=== PATIENT | female | born 1985 | race Hispanic/Latino ===

== ENCOUNTER 2018-05-25 18:47 | Emergency (ER) | payer SELFPAY ==
[2018-05-25 19:55] LABS: Urine Blood TRACE (NEG); Urine Glucose NEGATIVE (NEG); Urine Protein 1+ (NEG); Urine Specific Gravity 1.025 (1.005-1.030); Urine pH 8.5 (5.0-7.0)
--- NOTE | 2018-05-25 20:04 | RAD REPORT ---
EXAM DESCRIPTION: Josefina Narvaez (2 Views)05/25/2018 7:42 pm CLINICAL HISTORY: Chest pain COMPARISON: None FINDINGS: The lungs appear clear of acute infiltrate. The heart is normal size IMPRESSION: No acute abnormalities displayed
[2018-05-25 21:24] LABS: Absolute Lymphocytes (CBC) 3.1 K/uL (0.7-4.9); Absolute Monocytes 0.8 K/uL (0.1-1.3); Absolute Neutrophil 5.6 K/uL (1.8-8.0); Basophils % 0.7 % (0-1.3); Eosinophils % 2.3 % (0-4.4); Hematocrit 44.2 % (36.0-45.0); Lymphocytes % 31.9 % (15.3-44.8); MCH 30.4 pg (27.0-35.0); MCV 90.9 fL (80-100); MPV 9.4 fL (7.6-11.3); Monocytes % 8.3 % (3.3-12.3); RBC Red Blood Cell Count 4.86 M/uL (3.86-4.86)
--- NOTE | 2018-05-25 21:38 | EDPHYS ---
Physician Documentation [facility] Name: Maria Del Carmen Nolan Age: 33 yrs Sex: Female : 1985 Arrival Date: 05/25/2018 Time: 18:49 Bed 13 Private MD: None, None ED Physician John Ontiveros HPI: 05/25 21:35 This 33 yrs old Female presents to ER via Ambulatory with complaints of nh Breathing Difficulty. 21:35 The patient has shortness of breath at rest. Onset: The symptoms/episode began/occurred nh just prior to arrival. Duration: The symptoms are intermittent. The patient's shortness of breath has no apparent modifying factors. Associated signs and symptoms: Pertinent positives: chest pain. Severity of symptoms: At their worst the symptoms were moderate just prior to arrival, in the emergency department the symptoms are unchanged. The patient has not experienced similar symptoms in the past. The patient has not recently seen a physician. Historical: - Allergies: 18:52 No Known Allergies; sv - Home Meds: 18:52 None [Active]; sv - PMHx: 18:52 None; sv - PSHx: 18:52 None; sv - Immunization history:: Flu vaccine is not up to date. - Social history:: Smoking status: Patient/guardian denies using tobacco. - Ebola Screening: : No symptoms or risks identified at this time. ROS: 21:35 Constitutional: Negative for fever, chills, and weight loss, Eyes: Negative for injury, nh pain, redness, and discharge, ENT: Negative for injury, pain, and discharge, Neck: Negative for injury, pain, and swelling, Abdomen/GI: Negative for abdominal pain, nausea, vomiting, diarrhea, and constipation, Back: Negative for injury and pain, : Negative for injury, bleeding, discharge, and swelling, MS/Extremity: Negative for injury and deformity, Skin: Negative for injury, rash, and discoloration, Neuro: Negative for headache, weakness, numbness, tingling, and seizure, Psych: Negative for depression, anxiety, suicide ideation, homicidal ideation, and hallucinations, Allergy/Immunology: Negative for hives, rash, and allergies, Endocrine: Negative for neck swelling, polydipsia, polyuria, polyphagia, and marked weight changes, Hematologic/Lymphatic: Negative for swollen nodes, abnormal bleeding, and unusual bruising. 21:35 Cardiovascular: Positive for chest pain. 21:35 Respiratory: Positive for shortness of breath. Exam: 21:35 Constitutional: This is a well developed, well nourished patient who is awake, alert, nh and in no acute distress. Head/Face: Normocephalic, atraumatic. Eyes: Pupils equal round and reactive to light, extra-ocular motions intact. Lids and lashes normal. Conjunctiva and sclera are non-icteric and not injected. Cornea within normal limits. Periorbital areas with no swelling, redness, or edema. ENT: Nares patent. No nasal discharge, no septal abnormalities noted. Tympanic membranes are normal and external auditory canals are clear. Oropharynx with no redness, swelling, or masses, exudates, or evidence of obstruction, uvula midline. Mucous membranes moist. Neck: Trachea midline, no thyromegaly or masses palpated, and no cervical lymphadenopathy. Supple, full range of motion without nuchal rigidity, or vertebral point tenderness. No Meningismus. Chest/axilla: Normal chest wall appearance and motion. Nontender with no deformity. No lesions are appreciated. Cardiovascular: Regular rate and rhythm with a normal S1 and S2. No gallops, murmurs, or rubs. Normal PMI, no JVD. No pulse deficits. Respiratory: Lungs have equal breath sounds bilaterally, clear to auscultation and percussion. No rales, rhonchi or wheezes noted. No increased work of breathing, no retractions or nasal flaring. Abdomen/GI: Soft, non-tender, with normal bowel sounds. No distension or tympany. No guarding or rebound. No evidence of tenderness throughout. Back: No spinal tenderness. No costovertebral tenderness. Full range of motion. Skin: Warm, dry with normal turgor. Normal color with no rashes, no lesions, and no evidence of cellulitis. MS/ Extremity: Pulses equal, no cyanosis. Neurovascular intact. Full, normal range of motion. Neuro: Awake and alert, GCS 15, oriented to person, place, time, and situation. Cranial nerves II-XII grossly intact. Motor strength 5/5 in all extremities. Sensory grossly intact. Cerebellar exam normal. Normal gait. Psych: Awake, alert, with orientation to person, place and time. Behavior, mood, and affect are within normal limits. Vital Signs: 18:51 Temp 97.8; sv 18:52 BP 171 / 92; Pulse 117; Resp 22; Pulse Ox 97% ; Weight 127.01 kg; Height 5 ft. 2 in. sv (157.48 cm); Pain 7/10; 19:27 BP 125 / 86; Pulse 98; Resp 19 S; Pulse Ox 97% on R/A; cc3 20:33 BP 110 / 92; Pulse 81; Resp 19 S; Pulse Ox 97% on R/A; cc3 21:27 BP 110 / 61; Pulse 77; Resp 18 S; Pulse Ox 97% on R/A; cc3 18:52 Body Mass Index 51.21 (127.01 kg, 157.48 cm) sv MDM: 18:53 Patient medically screened. nh 21:35 Data reviewed: vital signs, nurses notes, lab test result(s), EKG, radiologic studies, nh I have discussed the patient's presentation/case with the attending Emergency Department Physician; and as a result, I will discharge patient. 05/25 19:46 Order name: Urine Dipstick--Ancillary (enter results); Complete Time: 20:02 ar5 05/25 20:36 Order name: CBC with Diff ps1 05/25 20:36 Order name: CMP ps1 05/25 20:36 Order name: Magnesium ps1 05/25 20:36 Order name: DD ps1 05/25 20:36 Order name: CBC with Automated Diff; Complete Time: 21:35 EDMS 05/25 19:03 Order name: EKG - Nurse/Tech; Complete Time: 19:19 nj 05/25 19:03 Order name: Chest Pa And Lat (2 Views) XRAY; Complete Time: 20:27 nj 05/25 19:03 Order name: Urine Dipstick-Ancillary (obtain specimen); Complete Time: 20:05 nj 05/25 19:03 Order name: Urine Test (obtain specimen); Complete Time: 20:05 nj 05/25 20:36 Order name: Comprehensive Metabolic Panel EDNJ 05/25 20:36 Order name: Magnesium EDMS 05/25 20:36 Order name: D-Dimer; Complete Time: 21:35 EDMS Administered Medications: No medications were administered Disposition: 05/25/18 21:37 Discharged to Home. Impression: Dyspnea, unspecified. - Condition is Stable. - Discharge Instructions: Shortness of Breath. - Medication Reconciliation Form, Thank You Letter, Antibiotic Education, Prescription Opioid Use form. - Follow up: Private Physician; When: 2 - 3 days; Reason: Recheck today's complaints. - Problem is new. - Symptoms are unchanged. Addendum: 05/27/2018 06:31 Co-signature as Attending Physician, John Ontiveros MD I agree with the assessment and c nguyễn plan of care. Signatures: Dispatcher [employer] Veronica Santos RN RN sv Anderson, Corey, MD MD cha Cronk, Niki, [employer] nj Pippa Short cc3 Corrections: (The following items were deleted from the chart) 05/25 21:52 21:37 05/25/2018 21:37 Discharged to Home. Impression: Dyspnea, unspecified. Condition cc3 is Stable. Forms are Medication Reconciliation Form, Thank You Letter, Antibiotic Education, Prescription Opioid Use. Follow up: Private Physician; When: 2 - 3 days; Reason: Recheck today's complaints. Problem is new. Symptoms are unchanged. nj
--- NOTE | 2018-05-25 21:38 | ER ---
Nurse's Notes [facility] Name: Maria Del Carmen Nolan Age: 33 yrs Sex: Female : 1985 Arrival Date: 05/25/2018 Time: 18:49 Bed 13 Private MD: None, None Diagnosis: Dyspnea, unspecified Presentation: 05/25 18:51 Presenting complaint: Patient states: right sided head numbness, chest pain, labored sv breathing and SOB started about 2 hours ago. Transition of care: patient was not received from another setting of care. Onset of symptoms was May 25, 2018. Care prior to arrival: None. 18:51 Method Of Arrival: Ambulatory sv 18:51 Acuity: ALTHEA 3 sv 19:15 Risk Assessment: Do you want to hurt yourself or someone else? Patient reports no cc3 desire to harm self or others. Initial Sepsis Screen: Does the patient meet any 2 criteria? No. Patient's initial sepsis screen is negative. Does the patient have a suspected source of infection? No. Patient's initial sepsis screen is negative. Triage Assessment: 18:51 General: Appears in no apparent distress. uncomfortable, obese, Behavior is calm, sv cooperative. Pain: Complains of pain in chest Pain currently is 7 out of 10 on a pain scale. Neuro: Level of Consciousness is awake, alert, obeys commands, Oriented to person, place, time, situation, Moves all extremities. Full function Gait is steady, Speech is normal, Reports numbness. Respiratory: Reports shortness of breath Airway is patent Respiratory effort is even, unlabored, Respiratory pattern is symmetrical, tachypnea Onset: The symptoms/episode began/occurred 2 hrs ago, the patient has mild shortness of breath. Derm: Skin is normal. Historical: - Allergies: 18:52 No Known Allergies; sv - Home Meds: 18:52 None [Active]; sv - PMHx: 18:52 None; sv - PSHx: 18:52 None; sv - Immunization history:: Flu vaccine is not up to date. - Social history:: Smoking status: Patient/guardian denies using tobacco. - Ebola Screening: : No symptoms or risks identified at this time. Screenin:15 Abuse screen: Denies threats or abuse. Denies injuries from another. Nutritional cc3 screening: No deficits noted. Tuberculosis screening: No symptoms or risk factors identified. Fall Risk Ambulatory Aid- None/Bed Rest/Nurse Assist (0 pts). Gait- Normal/Bed Rest/Wheelchair (0 pts) Mental Status- Oriented to own ability (0 pts). Assessment: 19:15 General: see triage assessment. cc3 19:15 Cardiovascular: Rhythm is regular. Respiratory: Airway is patent Respiratory effort is cc3 even, unlabored, Respiratory pattern is regular, symmetrical, Breath sounds are clear bilaterally. 20:32 Reassessment: Patient appears in no apparent distress at this time. Patient and/or cc3 family updated on plan of care and expected duration. Pain level reassessed. Patient is alert, oriented x 3, equal unlabored respirations, skin warm/dry/pink. 21:28 Reassessment: Patient appears in no apparent distress at this time. Patient and/or cc3 family updated on plan of care and expected duration. Pain level reassessed. Patient is alert, oriented x 3, equal unlabored respirations, skin warm/dry/pink. 21:50 Reassessment: Patient appears in no apparent distress at this time. Patient and/or cc3 family updated on plan of care and expected duration. Pain level reassessed. Patient is alert, oriented x 3, equal unlabored respirations, skin warm/dry/pink. TYRONE Dubois discharged the patient home, no prescription given. IV cannula removed and patient left ER vitally stable and ambulatory with her family. Patient states feeling better. Patient states symptoms have improved. Vital Signs: 18:51 Temp 97.8; sv 18:52 BP 171 / 92; Pulse 117; Resp 22; Pulse Ox 97% ; Weight 127.01 kg; Height 5 ft. 2 in. sv (157.48 cm); Pain 7/10; 19:27 BP 125 / 86; Pulse 98; Resp 19 S; Pulse Ox 97% on R/A; cc3 20:33 BP 110 / 92; Pulse 81; Resp 19 S; Pulse Ox 97% on R/A; cc3 21:27 BP 110 / 61; Pulse 77; Resp 18 S; Pulse Ox 97% on R/A; cc3 18:52 Body Mass Index 51.21 (127.01 kg, 157.48 cm) sv ED Course: 18:49 Patient arrived in ED. dl4 18:49 None, None is Private Physician. dl4 18:52 Triage completed. sv 18:53 [facility] Dub[facility]. nh 18:53 John Ontiveros MD is Attending Physician. nh 18:53 Arm band placed on. sv 18:55 Toby Hooker, RN is Primary Nurse. bp 19:15 Patient has correct armband on for positive identification. Placed in gown. Bed in low cc3 position. Call light in reach. Side rails up X 1. insole buffer on. Pulse ox on. NIBP on. 19:37 Chest Pa And Lat (2 Views) XRAY In Process Unspecified. EDMS 21:20 Inserted saline lock: 20 gauge in left antecubital area, using aseptic technique. cc3 21:50 No provider procedures requiring assistance completed. IV discontinued, intact, cc3 bleeding controlled, No redness/swelling at site. Pressure dressing applied. Administered Medications: No medications were administered Outcome: 21:37 Discharge ordered by . nh 21:50 Discharged to home ambulatory, with family. cc3 21:50 Condition: stable 21:50 Discharge instructions given to patient, family, Instructed on discharge instructions, follow up and referral plans. medication usage, Demonstrated understanding of instructions, follow-up care, medications. 21:52 Patient left the ED. cc3 Signatures: Dispatcher [employer] EDMN Veronica Valadez RN RN Rosario Dubois FNP [facility] Toby Hooker, RN RN Pippa Brunner cc3 Nikolay Vazquez dl4 Corrections: (The following items were deleted from the chart) 18:58 18:51 Presenting complaint: Patient states: left sided head numbness, chest pain, sv labored breathing and SOB started about 2 hours ago sv 20:36 20:33 Pulse 98bpm; Pulse Ox 97% RA; cc3 cc3
[2018-05-25 21:42] LABS: ALT/SGPT 41 U/L (12-78); AST/SGOT 30 U/L (15-37); Albumin 3.4 g/dL (3.4-5.0); Alkaline Phosphatase 120 U/L (45-117); BUN Blood Urea Nitrogen 7 mg/dL (7-18); Bicarbonate 29 mmol/L (21-32); Bilirubin Total 0.3 mg/dL (0.2-1.0); Glucose Level 98 mg/dL (74-106); Magnesium 2.2 mg/dL (1.8-2.4); Potassium 4.4 mmol/L (3.5-5.1); Protein, Total 8.6 g/dL (6.4-8.2); Sodium Level 138 mmol/L (136-145)
--- NOTE | 2018-05-27 11:37 | EKG ---
Test Date: 2018-05-25 Test Time: 19:16:32 Insulation Supervisor: AMEE MEASUREMENT RESULTS: Intervals: Rate: 94 OR: 158 QRSD: 90 QT: 350 QTc: 437 [place]: P: 25 OR: 158 QRS: 41 T: 26 INTERPRETIVE STATEMENTS: Normal sinus rhythm Normal ECG Compared to ECG 11/04/2016 23:36:37 No significant changes Electronically Signed On 05-27-18 11:36:34 PATHOLOGY SECRETARY by Gideon Lala
== END 2018-05-25 21:52 | disposition home or self-care (01) ==
LOC: ER 18:47
DX: R06.00 Dyspnea, unspecified (principal); R07.9 Chest pain, unspecified
CPT/HCPCS: 36415; 71046; 80053; 81003; 83735; 85025; 85379; 93005; 99284